=== PATIENT | male | born 1955 | race Caucasian/White ===

== ENCOUNTER 2023-03-12 08:10 | Outpatient (CLI) | payer BC ==
[2023-03-12 10:49] LABS: Anion Gap 13 mmol/L (10-20); BUN (Urea Nitrogen) 18 mg/dL (8.4-25.7); Calc. Creatinine Clearance 0 mL/min (70-130); Calcium 8.9 mg/dL (7.8-10.44); Carbon Dioxide 21 mmol/L (23-31); Chloride 106 mmol/L (98-107); Estimated GFR 98; Glucose 127 mg/dL (80-115); Potassium 4.4 mmol/L (3.5-5.1); Sodium 136 mmol/L (136-145)
== END 2023-03-12 08:11 | disposition home or self-care (01) ==
LOC: LABBT 08:10
PROVIDERS: ATTEND Neurological Surgery
DX: Z01.818 Encounter for other preprocedural examination (principal); I61.0 Nontraumatic intracerebral hemorrhage in hemisphere, subcortical
CPT/HCPCS: 80048; 93005; 93010

== ENCOUNTER 2023-03-17 07:25 | Day surgery (SDC) | payer BC ==
[2023-03-12 08:36] VITALS: BMI 39.0
[2023-03-17] MEDS ORDERED: Heparin 10,000 UNITS/ 10 ML VIAL ONE (08:44)
[2023-03-17] MEDS ORDERED: Lidocaine 1% (PF) 30 ML VIAL ONE (08:44)
[2023-03-17] MEDS ORDERED: CEFAZOLIN 2 GM VIAL ONE (09:38)
[2023-03-17] MEDS ORDERED: Iopamidol 370 76% 100 ML VIAL ONE (15:49)
== END 2023-03-17 14:18 | disposition home or self-care (01) ==
LOC: SDC 07:25
PROVIDERS: ATTEND Neurological Surgery
DX: I61.0 Nontraumatic intracerebral hemorrhage in hemisphere, subcortical (principal)
CPT/HCPCS: 36223; 36227; C1725; C1769; C1887; C1894; J1644; J2001; Q9967